=== PATIENT | male | born 1950 | race Caucasian/White ===

== ENCOUNTER → 2020-05-04 | Outpatient (CLI) | payer MEDICARE, OTHER ==
[~2020-05-04] MED LIST: ASPIRIN 81M81 MG/TA2 PO; COREG 25MG25 MG/TAB PO; JANUVIA50 MG PO; LIVALO4 MG PO; NEXIUM 40MG40 MG PO; OMEGA 31000 MG PO; PRINIVIL20 MG PO; SYNTHROID 0.0.025 MG PO; TRICOR145 MG PO; UROXATRAL10 M1 PO; VITAMIN D2000 I1 PO; ZESTRIL 5MG5 MG PO; ZYLOPRIM 300MG300 MG PO
== END ==
LOC: COL.CARD 13:00
DX: R25.1 Tremor, unspecified (principal); R42 Dizziness and giddiness; R20.2 Paresthesia of skin